=== PATIENT | male | born 1965 | race Caucasian/White ===

== ENCOUNTER → 2016-12-29 | Day surgery (SDC) | payer MEDICARE, OTHER ==
[~2016-12-29] VITALS: Ht 182.9 cm; Wt 145.6 kg
[~2016-12-29] MED LIST: AMLODIPINE BESYL5 MG PO; ASPIR 8181 MG PO; ASPIRIN EC81 MG PO; AUGMENTIN 875-1 EACH PO; BETADINE OINT (30 GM EXT; BUMETANIDE1 MG PO; CATAPRES 0.1MG0.1 MG PO; CLARITIN 10MG T10 MG PO; CLINDAMYCIN HC300 MG PO; COLCHICINE0.6 MG PO; COREG 25MG TAB25 MG PO; FENOFIBRATE145 MG PO; FENOFIBRATE54 MG PO; FISH OIL 10001000 MG PO; FLAGYL500 MG PO; LANTUS100 UNIT/1 SQ; LEVEMIR IN100 UNITS/ SQ; LIPITOR TAB 2020 MG PO; LOSARTAN POTAS100 MG PO; MIRALAX PACK 171 PKT GT; MIRALAX17 GM PO; NASONEX SPRAY 117 GM; NORVASC 5 MG TAB5 MG PO; NOVOLIN 70100 UNIT/1 SQ; NOVOLOG 10100 UNITS/ SQ; PLAVIX 75 MG TA75 MG PO; PREDNISONE10 M1 PO; SODIUM BICARBO650 MG PO; TRADJENTA5 MG PO; TYLENOL 325MG325 MG PO; TYLENOL 500 MG500 MG PO; ULORIC80 MG PO; VIT C PO; VITAMIN C 500500 MG PO
== END | disposition home or self-care (01) ==
LOC: OR 08:17
PROVIDERS: Internal Medicine Gastroenterology
PROC: 0DB68ZX Excision of Stomach, Via Natural or Artificial Opening Endoscopic, Diagnostic (ICD-10-PCS; principal; 2016-12-29 14:30)
DX: K29.51 Unspecified chronic gastritis with bleeding (principal); K21.0 Gastro-esophageal reflux disease with esophagitis; D50.0 Iron deficiency anemia secondary to blood loss (chronic); K29.80 Duodenitis without bleeding; E11.22 Type 2 diabetes mellitus with diabetic chronic kidney disease; I12.9 Hypertensive chronic kidney disease with stage 1 through stage 4 chronic kidney disease, or unspecified chronic kidney disease; N18.3 Chronic kidney disease, stage 3 (moderate); M10.9 Gout, unspecified; F32.9 Major depressive disorder, single episode, unspecified; Z83.3 Family history of diabetes mellitus; Z82.49 Family history of ischemic heart disease and other diseases of the circulatory system; Z98.890 Other specified postprocedural states
CPT/HCPCS: 82962; J2250; J3010; J7030

== ENCOUNTER → 2016-12-30 | Outpatient (CLI) | payer MEDICARE, OTHER | LOC: LBRF 14:28 | DX: L97.519 Non-pressure chronic ulcer of other part of right foot with unspecified severity (principal); R89.9 Unspecified abnormal finding in specimens from other organs, systems and tissues | CPT/HCPCS: 87070; 87205 ==

== ENCOUNTER → 2017-01-03 | Day surgery (SDC) | payer MEDICARE, OTHER | END | disposition home or self-care (01) | LOC: OR 07:02 | PROVIDERS: Internal Medicine Gastroenterology | PROC: 0DBL8ZZ Excision of Transverse Colon, Via Natural or Artificial Opening Endoscopic (ICD-10-PCS; 2017-01-03) | PROC: 0DBN8ZZ Excision of Sigmoid Colon, Via Natural or Artificial Opening Endoscopic (ICD-10-PCS; principal; 2017-01-03 16:00) | DX: D12.3 Benign neoplasm of transverse colon (principal); D12.5 Benign neoplasm of sigmoid colon; K64.0 First degree hemorrhoids; K21.9 Gastro-esophageal reflux disease without esophagitis; E11.40 Type 2 diabetes mellitus with diabetic neuropathy, unspecified; E11.22 Type 2 diabetes mellitus with diabetic chronic kidney disease; I12.9 Hypertensive chronic kidney disease with stage 1 through stage 4 chronic kidney disease, or unspecified chronic kidney disease; N18.3 Chronic kidney disease, stage 3 (moderate); D50.0 Iron deficiency anemia secondary to blood loss (chronic); E78.5 Hyperlipidemia, unspecified; M10.9 Gout, unspecified; Z88.1 Allergy status to other antibiotic agents; Z79.2 Long term (current) use of antibiotics; Z79.82 Long term (current) use of aspirin; Z79.899 Other long term (current) drug therapy; Z98.890 Other specified postprocedural states | CPT/HCPCS: 82962; J7030 ==

== ENCOUNTER → 2020-09-14 | Outpatient (CLI) | payer MEDICARE, OTHER ==
[~2020-09-14] VITALS: Ht 182.9 cm; Wt 142.9 kg
[~2020-09-14] MED LIST changes: +BASAGLAR K100 UNIT/1 SC; +CARAFATE1 GM PO; -CATAPRES 0.1MG0.1 MG PO; +CATAPRES0.3 MG PO; +CYMBALTA60 MG PO; +DILTIAZEM 24HR120 M1 PO; +ELIQUIS5 MG PO; +FISH OIL 1,0001 EACH PO; +HYDRALAZINE HCL25 MG PO; +IMDUR ER TAB 3030 MG PO; +INVANZ 1 GM VIAL1 GM IV; +NORCO 5-325 TA1 EACH PO; -NOVOLIN 70100 UNIT/1 SQ; +NOVOLOG FL100 UNIT/1 SQ; +PHENERGAN 25 MG25 M1 PO; +ROCEPHIN IM/I2000 MG IV; +SINEQUAN CAP 5050 MG PO; +THERAGRAN M TAB1 EA PO; +ULORIC 40 MG TA40 MG PO; -ULORIC80 MG PO; +VISTARIL 25 MG25 MG PO; +VITAMIN D21250 MCG PO; +ZYVOX600 MG PO
== END ==
LOC: OPSV 09:53
DX: M86.9 Osteomyelitis, unspecified (principal)
CPT/HCPCS: 96365; J0696

== ENCOUNTER → 2020-09-15 | Outpatient (CLI) | payer MEDICARE, OTHER ==
[~2020-09-15] VITALS: Ht 182.9 cm; Wt 142.9 kg
== END ==
LOC: OPSV 09:59
DX: M86.9 Osteomyelitis, unspecified (principal)
CPT/HCPCS: 96365; J0696

== ENCOUNTER → 2020-09-16 | Outpatient (CLI) | payer MEDICARE, OTHER ==
[~2020-09-16] VITALS: Ht 182.9 cm; Wt 142.9 kg
== END ==
LOC: OPSV 09:48
DX: M86.9 Osteomyelitis, unspecified (principal)
CPT/HCPCS: 96365; J0696

== ENCOUNTER → 2020-09-17 | Outpatient (CLI) | payer MEDICARE, OTHER ==
[~2020-09-17] VITALS: Ht 182.9 cm; Wt 142.9 kg
== END ==
LOC: OPSV 09:08
DX: M86.9 Osteomyelitis, unspecified (principal)
CPT/HCPCS: 96365; J0696

== ENCOUNTER → 2020-09-21 | Outpatient (CLI) | payer MEDICARE, OTHER ==
[2020-09-21 12:33] LABS: HEMOGLOBIN 11.2 gm/dl (14.0-17.5); RED BLOOD COUNT 3.76 M/UL (4.20-5.50); WHITE BLOOD COUNT 9.6 K/UL (4.5-11.0)
== END ==
LOC: OPSV2 10:45
PROVIDERS: Surgery
DX: Z01.818 Encounter for other preprocedural examination (principal); R94.31 Abnormal electrocardiogram [ECG] [EKG]
CPT/HCPCS: 36415; 71046; 80053; 81001; 85025; 85610; 85730; 86850; 86900; 86901; 93005

== ENCOUNTER 2020-09-22 05:40 | Inpatient (IN) | payer MEDICARE, OTHER ==
[~2020-09-22] VITALS: Ht 182.9 cm; Wt 152.9 kg
[~2020-09-22 05:40] MED LIST changes: -DILTIAZEM 24HR120 M1 PO; -ELIQUIS5 MG PO; -INVANZ 1 GM VIAL1 GM IV; -THERAGRAN M TAB1 EA PO
[2020-09-22] MEDS ORDERED: ULORIC 40 MG TA40 MG PO (06:35)
[2020-09-23 04:52] LABS: HEMOGLOBIN 10.1 gm/dl (14.0-17.5); WHITE BLOOD COUNT 9.7 K/UL (4.5-11.0)
[2020-09-23 04:54] LABS: RED BLOOD COUNT 3.36 M/UL (4.20-5.50)
--- NOTE | 2020-09-23 18:49 | NUR ---
REMOVE ARTERIAL LINE AT 1600. HELD PRESSURE FOR THE APPROPRIATE AMOUNT OF TIME AND APPLIED A PRESSURE DRESSING.
[2020-09-27 05:58] LABS: HEMOGLOBIN 9.3 gm/dl (14.0-17.5); RED BLOOD COUNT 3.06 M/UL (4.20-5.50); WHITE BLOOD COUNT 8.3 K/UL (4.5-11.0)
[2020-09-28 03:45] LABS: HEMOGLOBIN 9.5 gm/dl (14.0-17.5); RED BLOOD COUNT 3.15 M/UL (4.20-5.50); WHITE BLOOD COUNT 7.7 K/UL (4.5-11.0)
[2020-09-28] MEDS ORDERED: THERAGRAN M TAB1 EA PO (09:14)
[2020-09-28] MEDS ORDERED: HYDRALAZINE HCL25 MG PO (09:14)
[2020-09-28] MEDS ORDERED: INVANZ 1 GM VIAL1 GM IV (09:14)
== END 2020-09-28 13:30 | disposition home health service (06) | DRG 253 ==
LOC: OR 05:40 → EDSTATUS 07:30 → CCU 11:23 → OR 09-23 13:05 → M/S 09-24 20:40
PROVIDERS: Surgery; ADMIT Internal Medicine Infectious Disease
PROC: 047R3ZZ Dilation of Right Posterior Tibial Artery, Percutaneous Approach (ICD-10-PCS; 2020-09-22)
PROC: B41F1ZZ Fluoroscopy of Right Lower Extremity Arteries using Low Osmolar Contrast (ICD-10-PCS; 2020-09-22)
PROC: 047T3Z1 Dilation of Right Peroneal Artery using Drug-Coated Balloon, Percutaneous Approach (ICD-10-PCS; principal; 2020-09-22 07:30)
DX: I16.0 Hypertensive urgency (principal); N17.9 Acute kidney failure, unspecified; L97.419 Non-pressure chronic ulcer of right heel and midfoot with unspecified severity; M86.671 Other chronic osteomyelitis, right ankle and foot; E87.1 Hypo-osmolality and hyponatremia; I13.0 Hypertensive heart and chronic kidney disease with heart failure and stage 1 through stage 4 chronic kidney disease, or unspecified chronic kidney disease; Z68.42 Body mass index [BMI] 45.0-49.9, adult; E11.51 Type 2 diabetes mellitus with diabetic peripheral angiopathy without gangrene; Z20.822 Contact with and (suspected) exposure to COVID-19; E78.5 Hyperlipidemia, unspecified; E11.22 Type 2 diabetes mellitus with diabetic chronic kidney disease; N18.30 Chronic kidney disease, stage 3 unspecified; G62.9 Polyneuropathy, unspecified; E66.01 Morbid (severe) obesity due to excess calories; Z89.421 Acquired absence of other right toe(s); Z98.49 Cataract extraction status, unspecified eye; Z96.1 Presence of intraocular lens; Z83.3 Family history of diabetes mellitus; Z82.49 Family history of ischemic heart disease and other diseases of the circulatory system; Z80.42 Family history of malignant neoplasm of prostate; Z79.82 Long term (current) use of aspirin; Z79.4 Long term (current) use of insulin; D64.89 Other specified anemias; I50.9 Heart failure, unspecified; Z88.1 Allergy status to other antibiotic agents; Z88.8 Allergy status to other drugs, medicaments and biological substances
CPT/HCPCS: 36415; 71046; 73630; 73718; 76000; 80048; 80053; 81001; 82962; 85025; 85027; 85610; 85730; 86140; 86850; 86900; 86901; 87070; 87205; 93005; 94760; C1725; C1769; C1887; J0360; J0690; J1335; J1644; J1650; J2001; J2250; J2370; J2405; J2704; J2710; J2720; J2795; J3010; J3370; J7030; J7040; J7050; J7120; Q0177; Q4133; Q9962

== ENCOUNTER → 2021-03-19 | Outpatient (CLI) | payer MEDICARE, OTHER ==
[~2021-03-19] MED LIST changes: +BUMETANIDE2 MG PO; +DILTIAZEM 24HR120 M1 PO; +ELIQUIS5 MG PO; +INVANZ 1 GM VIAL1 GM IV; +OMEPRAZOLE20 MG PO; +THERAGRAN M TAB1 EA PO; +ZOFRAN ODT 4 MG4 MG PO
[2021-03-19 09:13] LABS: HEMOGLOBIN 9.9 gm/dl (14.0-17.5); RED BLOOD COUNT 3.18 M/UL (4.20-5.50); WHITE BLOOD COUNT 9.9 K/UL (4.5-11.0)
== END ==
LOC: LAB 08:51
PROVIDERS: Internal Medicine Cardiovascular Disease
DX: I48.92 Unspecified atrial flutter (principal); Z20.822 Contact with and (suspected) exposure to COVID-19
CPT/HCPCS: 36415; 71046; 80048; 85025; U0003

== ENCOUNTER 2021-03-23 09:47 | Outpatient (CLI) | payer MEDICARE, OTHER ==
[~2021-03-23] VITALS: Ht 182.9 cm; Wt 161.9 kg
[~2021-03-23 09:47] MED LIST changes: -BUMETANIDE2 MG PO; -DILTIAZEM 24HR120 M1 PO; -ELIQUIS5 MG PO; -OMEPRAZOLE20 MG PO; -ZOFRAN ODT 4 MG4 MG PO
[2021-03-23] MEDS ORDERED: ELIQUIS5 MG PO (10:38)
[2021-03-23] MEDS ORDERED: FENOFIBRATE54 MG PO (18:01)
[2021-03-23] MEDS ORDERED: DILTIAZEM 24HR120 M1 PO (18:01)
[2021-03-23] MEDS ORDERED: BUMETANIDE1 MG PO (18:04)
[2021-03-24] MEDS ORDERED: ASPIRIN EC81 MG PO (08:50)
== END 2021-03-24 11:56 | disposition home or self-care (01) ==
LOC: CATH 09:47 → PROG CARE 17:15 → CATH 03-24 11:56
DX: I48.92 Unspecified atrial flutter (principal); I12.9 Hypertensive chronic kidney disease with stage 1 through stage 4 chronic kidney disease, or unspecified chronic kidney disease; E11.22 Type 2 diabetes mellitus with diabetic chronic kidney disease; N18.30 Chronic kidney disease, stage 3 unspecified; E11.51 Type 2 diabetes mellitus with diabetic peripheral angiopathy without gangrene; J44.9 Chronic obstructive pulmonary disease, unspecified; G47.33 Obstructive sleep apnea (adult) (pediatric); I95.1 Orthostatic hypotension; D63.1 Anemia in chronic kidney disease; M19.90 Unspecified osteoarthritis, unspecified site; F32.9 Major depressive disorder, single episode, unspecified; E11.42 Type 2 diabetes mellitus with diabetic polyneuropathy; E78.1 Pure hyperglyceridemia; E78.5 Hyperlipidemia, unspecified; E78.00 Pure hypercholesterolemia, unspecified; E55.9 Vitamin D deficiency, unspecified; F41.9 Anxiety disorder, unspecified; K21.9 Gastro-esophageal reflux disease without esophagitis; E11.319 Type 2 diabetes mellitus with unspecified diabetic retinopathy without macular edema; E66.01 Morbid (severe) obesity due to excess calories; Z68.41 Body mass index [BMI] 40.0-44.9, adult; Z79.899 Other long term (current) drug therapy; Z79.4 Long term (current) use of insulin; Z79.01 Long term (current) use of anticoagulants
CPT/HCPCS: 71045; 82962; 93005; 93609; 93620; 93621; 99152; 99153; C1730; C1733; C1766; J1200; J1644; J2250; J3010; J7040

== ENCOUNTER → 2021-04-29 | Day surgery (SDC) | payer MEDICARE, OTHER ==
[~2021-04-29] MED LIST changes: +BUMETANIDE2 MG PO; +DILTIAZEM 24HR120 M1 PO; +ELIQUIS5 MG PO; +OMEPRAZOLE20 MG PO; +ZOFRAN ODT 4 MG4 MG PO
== END | disposition home or self-care (01) ==
LOC: OR 05:40
DX: Z12.11 Encounter for screening for malignant neoplasm of colon (principal); D12.0 Benign neoplasm of cecum; D12.2 Benign neoplasm of ascending colon; D12.5 Benign neoplasm of sigmoid colon; K64.0 First degree hemorrhoids; K64.4 Residual hemorrhoidal skin tags; I12.9 Hypertensive chronic kidney disease with stage 1 through stage 4 chronic kidney disease, or unspecified chronic kidney disease; E11.22 Type 2 diabetes mellitus with diabetic chronic kidney disease; N18.30 Chronic kidney disease, stage 3 unspecified; D63.1 Anemia in chronic kidney disease; E11.42 Type 2 diabetes mellitus with diabetic polyneuropathy; E78.1 Pure hyperglyceridemia; K21.00 Gastro-esophageal reflux disease with esophagitis, without bleeding; E66.01 Morbid (severe) obesity due to excess calories; Z86.010 Personal history of colon polyps; Z68.42 Body mass index [BMI] 45.0-49.9, adult; Z80.0 Family history of malignant neoplasm of digestive organs; Z88.1 Allergy status to other antibiotic agents; Z79.4 Long term (current) use of insulin; Z79.82 Long term (current) use of aspirin; Z79.899 Other long term (current) drug therapy
CPT/HCPCS: 82962; J2001; J2250; J2704; J7040

== ENCOUNTER 2021-05-26 08:38 | Emergency (ER) | payer MEDICARE, OTHER ==
[~2021-05-26] VITALS: Ht 182.9 cm; Wt 160.6 kg
[~2021-05-26 08:38] MED LIST changes: -BUMETANIDE2 MG PO; -OMEPRAZOLE20 MG PO; -ZOFRAN ODT 4 MG4 MG PO
[2021-05-26 09:52] LABS: HEMOGLOBIN 8.8 gm/dl (14.0-17.5); RED BLOOD COUNT 2.93 M/UL (4.20-5.50); WHITE BLOOD COUNT 7.1 K/UL (4.5-11.0)
[2021-05-26] MEDS ORDERED: BUMETANIDE2 MG PO (12:48)
[2021-05-26] MEDS ORDERED: BUMETANIDE1 MG PO (12:49)
[2021-05-26] MEDS ORDERED: ZOFRAN ODT 4 MG4 MG PO (12:50)
== END 2021-05-26 14:15 | disposition home or self-care (01) ==
LOC: ER1 08:38
PROVIDERS: Nurse Practitioner
DX: Z23 Encounter for immunization (principal); U07.1 COVID-19; E78.5 Hyperlipidemia, unspecified; I12.9 Hypertensive chronic kidney disease with stage 1 through stage 4 chronic kidney disease, or unspecified chronic kidney disease; E11.22 Type 2 diabetes mellitus with diabetic chronic kidney disease; N18.9 Chronic kidney disease, unspecified; Z79.4 Long term (current) use of insulin; E11.40 Type 2 diabetes mellitus with diabetic neuropathy, unspecified; Z88.8 Allergy status to other drugs, medicaments and biological substances
CPT/HCPCS: 71045; 80053; 81001; 82550; 82553; 83735; 83880; 84484; 85025; 87040; 93005; 99285; M0243; U0002

== ENCOUNTER 2021-05-26 20:15 | Emergency (ER) | payer MEDICARE, OTHER ==
[~2021-05-26 20:15] MED LIST changes: +BUMETANIDE2 MG PO; +ZOFRAN ODT 4 MG4 MG PO
== END 2021-05-27 03:40 | disposition home or self-care (01) ==
LOC: ER1 20:15
DX: U07.1 COVID-19 (principal); I10 Essential (primary) hypertension; E11.9 Type 2 diabetes mellitus without complications
CPT/HCPCS: 96374; 96375; 99283; J1885; J2405; J2765

== ENCOUNTER 2021-06-09 14:47 | Emergency (ER) | payer MEDICARE, OTHER ==
[2021-06-09 16:13] LABS: HEMOGLOBIN 11.3 gm/dl (14.0-17.5); RED BLOOD COUNT 3.62 M/UL (4.20-5.50); WHITE BLOOD COUNT 12.6 K/UL (4.5-11.0)
[2021-06-09 16:41] LABS: BUN/CREATININE RATIO 17 (0-10)
[2021-06-09] MEDS ORDERED: OMEPRAZOLE20 MG PO (23:50)
== END 2021-06-09 23:35 | disposition home or self-care (01) ==
LOC: ER1 14:47
PROVIDERS: Student in an Organized Health Care Education/Training Program
DX: F32.9 Major depressive disorder, single episode, unspecified (principal)
CPT/HCPCS: 71045; 80053; 82550; 82553; 83690; 83874; 84484; 85025; 93005; 99284

== ENCOUNTER 2021-06-13 20:49 | Emergency (ER) | payer MEDICARE, OTHER ==
[~2021-06-13 20:49] MED LIST changes: +OMEPRAZOLE20 MG PO
== END 2021-06-13 23:26 | disposition home or self-care (01) ==
LOC: ER1 20:49
DX: I13.0 Hypertensive heart and chronic kidney disease with heart failure and stage 1 through stage 4 chronic kidney disease, or unspecified chronic kidney disease (principal); N18.30 Chronic kidney disease, stage 3 unspecified; I50.30 Unspecified diastolic (congestive) heart failure; I25.10 Atherosclerotic heart disease of native coronary artery without angina pectoris; E66.01 Morbid (severe) obesity due to excess calories; Z88.1 Allergy status to other antibiotic agents; Z88.8 Allergy status to other drugs, medicaments and biological substances
CPT/HCPCS: 99284

== ENCOUNTER → 2021-08-23 | Outpatient (CLI) | payer MEDICARE, OTHER | LOC: WCC 07:55 | DX: E11.621 Type 2 diabetes mellitus with foot ulcer (principal); L97.512 Non-pressure chronic ulcer of other part of right foot with fat layer exposed; I73.9 Peripheral vascular disease, unspecified; E11.22 Type 2 diabetes mellitus with diabetic chronic kidney disease; N18.6 End stage renal disease; E11.40 Type 2 diabetes mellitus with diabetic neuropathy, unspecified; E66.01 Morbid (severe) obesity due to excess calories; E11.36 Type 2 diabetes mellitus with diabetic cataract; H26.9 Unspecified cataract; Z98.62 Peripheral vascular angioplasty status; Z88.1 Allergy status to other antibiotic agents; Z79.4 Long term (current) use of insulin ==

== ENCOUNTER → 2021-08-30 | Outpatient (CLI) | payer MEDICARE, OTHER | LOC: WCC 07:54 | DX: E11.621 Type 2 diabetes mellitus with foot ulcer (principal); L97.512 Non-pressure chronic ulcer of other part of right foot with fat layer exposed; I73.9 Peripheral vascular disease, unspecified; E11.40 Type 2 diabetes mellitus with diabetic neuropathy, unspecified; E66.01 Morbid (severe) obesity due to excess calories; E11.22 Type 2 diabetes mellitus with diabetic chronic kidney disease; N18.6 End stage renal disease; E11.36 Type 2 diabetes mellitus with diabetic cataract; H26.9 Unspecified cataract; Z79.4 Long term (current) use of insulin; Z98.62 Peripheral vascular angioplasty status ==

== ENCOUNTER → 2021-09-07 | Outpatient (CLI) | payer MEDICARE, OTHER | LOC: WCC 07:37 | DX: E11.621 Type 2 diabetes mellitus with foot ulcer (principal); L97.512 Non-pressure chronic ulcer of other part of right foot with fat layer exposed; E11.40 Type 2 diabetes mellitus with diabetic neuropathy, unspecified; E11.51 Type 2 diabetes mellitus with diabetic peripheral angiopathy without gangrene; E11.22 Type 2 diabetes mellitus with diabetic chronic kidney disease; E66.01 Morbid (severe) obesity due to excess calories; Z68.42 Body mass index [BMI] 45.0-49.9, adult; Z79.4 Long term (current) use of insulin; N18.9 Chronic kidney disease, unspecified ==